=== PATIENT | male | born 1970 | race Caucasian/White ===

== ENCOUNTER → 2022-05-01 | Outpatient (CLI) | payer OTHER ==
--- NOTE | 2022-05-02 08:30 | US ---
EXAMINATION TYPE: US thyroid st tissue head/neck DATE OF EXAM: 05/01/2022 COMPARISON: NONE CLINICAL HISTORY: F45.8 OTHER SOMATOFORM DISORDERS. Lump thyroid GLAND SIZE: Right Lobe: 4.5 x 1.4 x 2.0 cm Overall Parenchyma: homogenous Left Lobe: 4.1 x 1.4 x 1.5 cm Overall Parenchyma: homogeneous Isthmus Thickness: cm NODULES RIGHT: # of nodules measured on right: 0 LEFT: # of nodules measured on left: 1area posterior to thyroid vs. adjacent to thyroid gland. 1. 1.1 X 1.0 x 1.0 cm, lower , , hypoechoic nodule, which is wider than tall, with smooth margins, without echogenic foci. Prior size: No previous. ISTHMUS: # of nodules measured in the isthmus: 0 Bilateral neck scanned, no evidence of lymphadenopathy. IMPRESSION: Nonspecific left-sided thyroid nodule versus parathyroid adenoma.
== END | disposition home or self-care (01) ==
LOC: RADUSWWP 16:52
PROVIDERS: ATTEND Family Medicine
DX: F45.8 Other somatoform disorders (principal)
CPT/HCPCS: 76536

== ENCOUNTER → 2023-05-14 | Outpatient (CLI) | payer OTHER ==
--- NOTE | 2023-05-19 22:16 | MR ---
EXAMINATION TYPE: MR knee LT wo con DATE OF EXAM: 05/14/2023 COMPARISON: Radiographs 04/17/2023 HISTORY: 53-year-old male Left knee pain behind and medial with swelling TECHNIQUE: Multiplanar, multisequence imaging of the left knee is performed without IV contrast. FINDINGS: There is an ACL rupture. PCL is intact. MCL is intact. There is prominent lateral capsular swelling but the LCL complex appears to remain intact. Additional anterior soft tissue swelling. Nondepressed impaction fractures involving the posterior lips of both medial (1.3 x 2.3 cm) and later al tibial plateaus (measuring 0.8 x 1.7 cm). Extensive associated bone marrow edema within the tibial plateaus. Corresponding impaction injury with 3 mm of depression along the anterior to middle third lateral fem oral condyle. Again, associated bone marrow edema. There is an irregular tear involving the posterior horn and body of the medial meniscus. Some degenerative signal within the body of the lateral meniscus. Signal does not clearly contact eit her articular surface at this time. Minimal superficial cartilage fissuring along the medial and lateral patellar facets. Tricompartment articular cartilage volumes are otherwise maintained. There is a moderate to large joint effusion and tiny Hutchison's cyst. Moderate fluid tracks along the popliteus tendon sheath. Extensor mechanism is intact. Normal popliteal artery anatomy and muscle bulk. No suspicious bone marrow replacement. IMPRESSION: 1. ACL rupture with corresponding coup and countercoup kissing contusions/impaction injuries. The con tusion involving the lateral femoral condyle corresponds to a deepened notch with depression of the a rticular surface by 3 mm. Extensive reactive osseous edema on both sides of the joint. 2. Irregular tear involving the posterior horn and body of the medial meniscus. 3. Degenerative signal involving the body of the lateral meniscus but without clear tear at this time . 4. Minimal superficial cartilage fissuring along the medial and lateral patellar facets of the patell ofemoral compartment. 5. Moderate to large joint effusion and tiny Hutchison's cyst. Moderate fluid also noted tracking along t he popliteus tendon sheath.
== END | disposition home or self-care (01) ==
LOC: RADMRIMAIN 21:30
PROVIDERS: ATTEND Orthopaedic Surgery
DX: M17.12 Unilateral primary osteoarthritis, left knee (principal); S83.242A Other tear of medial meniscus, current injury, left knee, initial encounter; S80.02XA Contusion of left knee, initial encounter; R60.0 Localized edema; M71.22 Synovial cyst of popliteal space [Baker], left knee; M25.462 Effusion, left knee; X58.XXXA Exposure to other specified factors, initial encounter

== ENCOUNTER → 2023-06-11 | Outpatient (CLI) | payer OTHER ==
[2023-06-11 15:49] LABS: Calcium 9.9 mg/dL (8.7-10.3); Carbon Dioxide 26.5 mmol/L (21.6-31.8); Chloride 103 mmol/L (96-109); Glucose 101 mg/dL (70-110); Potassium 4.2 mmol/L (3.5-5.5); Sodium 141 mmol/L (135-145)
[2023-06-11 16:03] LABS: Basophils # (A) 0.05 X 10*3/uL (0.00-0.10); Basophils % (A) 0.7 %; Eosinophils # (A) 0.28 X 10*3/uL (0.04-0.35); Eosinophils % (A) 4.1 %; HCT 45.7 % (39.6-50.0); HGB 15.3 d/dL (13.0-17.0); Lymphocytes # (A) 1.91 X 10*3/uL (0.90-5.00); Lymphocytes % (A) 28.1 %; MCHC 33.5 d/dL (32.0-37.0); MCV 86.6 FL (80.0-97.0); Mean Platelet Volume 11.4 FL (9.5-12.2); Monocytes # (A) 0.64 X 10*3/uL (0.20-1.00); Monocytes % (A) 9.4 %; NRBC Per 100 WBC 0 X 10*3/uL (0.00-0.01); Neutrophils # (A) 3.88 X 10*3/uL (1.80-7.70); Neutrophils % (A) 57.1 %; Platelet Count 242 X 10*3/uL (140-440); RBC 5.28 X 10*6/uL (4.40-5.60); RDW 13.5 % (11.5-14.5)
== END | disposition home or self-care (01) ==
LOC: LABWHC1 08:28
PROVIDERS: ATTEND Orthopaedic Surgery
DX: Z01.818 Encounter for other preprocedural examination (principal); M23.92 Unspecified internal derangement of left knee
CPT/HCPCS: 36415; 80048; 85025; 93005

== ENCOUNTER 2023-06-21 09:04 | Day surgery (SDC) | payer OTHER ==
--- NOTE | 2023-06-20 08:48 | P.HPOR ---
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 [place]. He is having persistent medial pain along with catching and locking ever since. He tried medications along with an injection without much relief. He notes daily pain that limits him. He does have a history of arthroscopy in 2016. Review of Systems As per HPI Past Medical History Past Medical History: GERD/Reflux, Hyperlipidemia, Musculoskeletal Disorder, Sleep Apnea/CPAP/BIPAP Additional Past Medical History / Comment(s): seasonal allergies, uses CPAP History of Any Multi-Drug Resistant Organisms: None Reported Past Surgical History: Orthopedic Surgery Additional Past Surgical History / Comment(s): COLONOSCOPY, arthroscopic left knee Past Anesthesia/Blood Transfusion Reactions: No Reported Reaction Smoking Status: Former smoker - Past Family History Father Family Medical History: Cancer Medications and Allergies Home Medications Medication Instructions Recorded Confirmed Type Atorvastatin [Lipitor] 20 mg PO HS 06/19/23 06/19/23 History Fluticasone Nasal [place] [Flonase 2 spray EA NOSTRIL DAILY PRN 06/19/23 06/19/23 History Nasal [place]] Lansoprazole [Prevacid 24Hr] 15 mg PO DAILY 06/19/23 06/19/23 History Multivitamins, Thera [Multivitamin 1 tab PO DAILY 06/19/23 06/19/23 History (formulary)] Allergies Allergy/AdvReac Type Severity Reaction Status Date / Time No Known Allergies Allergy Verified 06/19/23 14:42 Physical Examination - Knee left Appearance: effusion Effusion grade: grade 2 Tenderness with palpation: medial Pain: throughout ROM ROM: extension: -10 degrees ROM: flexion: 110 degrees Strength: extension: 5/5 Strength: flexion: 5/5 ACL tests: Talha's: grade 1 Meniscal tests: medial meniscal tests: positive, medial joint line pain: positive Results The patient is a well-developed well-nourished male proximal and 6 foot tall, 240 pounds of mesomorphic habitus. HEENT exam is nonfocal, neck is supple. He has painless passive motion of left hip. Straight leg raise is negative. He's tender about the medial and lateral joint line of the left knee. Collaterals are stable, Talha and 1+, pivot shift is positive. Sarahi's elicits medial pain. His distal neurovascular status appears intact in the left lower extremity. - Diagnostic results Knee MRI: image reviewed (Left knee MRI shows evidence of an ACL rupture along with medial meniscal tear. There is edema about the medial and lateral tibial plateau and lateral femoral condyle.) Assessment and Plan Assessment: Left knee internal derangement/medial meniscal tear/ACL rupture Plan: I talked to the patient regarding his condition along with treatment options. At this point he is quite symptomatic having both pain and mechanical symptoms. After thorough discussion and asked proceed with surgery. We'll plan to proceed with arthroscopic evaluation with probable partial medial meniscectomy and possible ACL debridement. I did discuss pros and cons of ACL reconstruction, at this point we will treat his ACL deficiency conservatively.
[~2023-06-21 09:04] MED LIST: DEXAMETHASONE SOD PHOSPHATE 4 MG/ML 1 ML VIAL IV ONE; LACTATED RINGERS 1,000 ML IV SCH; MIDAZOLAM 2 MG/2 ML VIAL IV PRN; ONDANSETRON 4 MG/2 ML VIAL IVP ONE; SCOPOLAMINE 1 MG/72 HR PATCH TRANSDERM ONE
[2023-06-21] MEDS ORDERED: MIDAZOLAM 2 MG/2 ML VIAL IVP ONE (09:59)
[2023-06-21] MEDS ORDERED: LIDOCAINE 2% INJ 20 MG/ML (2 ML VIAL) ONE (11:18)
[2023-06-21] MEDS ORDERED: PROPOFOL 10 MG/ML 20 ML VIAL IV ONE (11:18)
[2023-06-21] MEDS ORDERED: KETOROLAC 15 MG/ML 1 ML VIAL ONE (11:18)
[2023-06-21] MEDS ORDERED: fentaNYL (PF) 50 MCG/ML 2 ML AMP ONE (11:18)
--- NOTE | 2023-06-21 12:18 | P.OP ---
Date of Procedure: 06/21/23 Preoperative Diagnosis: Left knee internal derangement/ACL rupture Postoperative Diagnosis: Left knee posterior medial meniscal tear/anterior lateral meniscal tear/ACL rupture femoral attachment Procedure(s) Performed: Left knee arthroscopic partial medial meniscectomy/partial lateral meniscectomy/ACL debridement Anesthesia: RAJI Surgeon: Pradeep Rausch Estimated Blood Loss (ml): 10 Pathology: none sent Condition: stable Disposition: PACU Indications for Procedure: The patient is a 53-year-old male who presents with left knee pain and mechanical symptoms after a recent twisting injury despite attempted conservative measures. A discussion of the risks and benefits of operative intervention versus continued conservative measures was made with the patient. He opted to proceed with surgery. Operative risks to include infection, neurovascular injury, development of blood clots, possible persistence of instability, possible need for subsequent procedures was discussed. Operative options were discussed including arthroscopy with ACL debridement versus reconstruction. At this point I planned on conservative measures regarding his ACL rupture. Informed consent was obtained. Operative Findings: As below Description of Procedure: The patient was brought to the operating room, and after induction of general anesthesia examined the left knee. Collaterals were stable, Talha 1+ with a soft endpoint, and posterior drawer was negative. The left lower extremity was prepped and draped in a normal fashion. A superior lateral portal was made through a 3 mm skin incision superior and lateral to the patella. This was used for outflow. A lateral portal was made through a 5 mm vertical skin incision lateral to the patella tendon above the joint line. Diagnostic arthroscopy was performed. On inspection of the medial compartment, oblique tear involving the posterior most aspect of the medial meniscus in the white.-white junction was noted. This was not amenable to repair. This was debrided back to stable base with straight baskets and a motorized shaver. Grade 2 chondral changes were noted diffusely in the medial compartment. On inspection of the notch, the anterior cruciate ligament appeared to be completely ruptured off its femoral attachment. This was impinging on the lateral compartment. This was debrided back to stable tissue with a motorized shaver. On inspection of the lateral compartment, an anterior lateral meniscal tear was noted along the lateral tibial spine in the white-white junction. This was debrided back to stable base with a motorized shaver.. On inspection of the patellofemoral articulation, there is chondral fibrillation however no loose chondral fragments. The gutters were clear debris. The knee was then thoroughly irrigated. The portals were closed with Steri-Strips. A sterile dressing was applied in addition to a compression stocking. The patient was awoken from general anesthesia and transferred to recovery room in good condition. Blood loss was estimated at 10 mL. No complications were incurred.
[2023-06-21] MEDS: HYDROmorphone 0.5 MG/0.5 ML SYRINGE IVP PRN ×3 (12:22→12:38)
[2023-06-21 12:26] VITALS: TEMP 98
[2023-06-21 13:16] VITALS: RESP 20
[2023-06-21] MEDS ORDERED: HYDROcodone/APAP 7.5-325MG 1 EACH TAB ONE (13:28)
[2023-06-21] MEDS ORDERED: HYDROcodone/APAP 7.5-325MG 1 EACH TAB PO ONE (13:29)
[2023-06-21 13:31] VITALS: BP 124/73; PULSE 72
== END 2023-06-21 14:04 | disposition home or self-care (01) ==
LOC: OR 09:04
PROVIDERS: ATTEND Orthopaedic Surgery
DX: S83.242A Other tear of medial meniscus, current injury, left knee, initial encounter (principal); S83.282A Other tear of lateral meniscus, current injury, left knee, initial encounter; S86.912A Strain of unspecified muscle(s) and tendon(s) at lower leg level, left leg, initial encounter; X50.1XXA Overexertion from prolonged static or awkward postures, initial encounter; K21.9 Gastro-esophageal reflux disease without esophagitis; E78.5 Hyperlipidemia, unspecified; G47.30 Sleep apnea, unspecified; Z87.891 Personal history of nicotine dependence; Z79.899 Other long term (current) drug therapy
CPT/HCPCS: 29880; J2250; J1100; J0690; J2405; J3010; J1885; J2704; J1170; J2001

== ENCOUNTER 2024-08-07 12:11 | Day surgery (SDC) | payer BC, OTHER ==
[2024-08-05 11:33] VITALS: BMI 33.9
[~2024-08-07 12:11] MED LIST changes: -DEXAMETHASONE SOD PHOSPHATE 4 MG/ML 1 ML VIAL IV ONE; -LACTATED RINGERS 1,000 ML IV SCH; +LIDOCAINE 1% (10MG/ML) FOR IV START INTRADERMA PRN; -MIDAZOLAM 2 MG/2 ML VIAL IV PRN; -ONDANSETRON 4 MG/2 ML VIAL IVP ONE; -SCOPOLAMINE 1 MG/72 HR PATCH TRANSDERM ONE
[2024-08-07 12:56] VITALS: TEMP 97.4
[2024-08-07] MEDS: IV FLUID CONTINUATION 1,000 ML IV ONE (13:04)
[2024-08-07] MEDS: LACTATED RINGERS 1,000 ML IV SCH (13:05)
[2024-08-07] MEDS ORDERED: PROPOFOL 10 MG/ML 20 ML VIAL IV ONE (14:16)
[2024-08-07 14:47] VITALS: RESP 16
--- NOTE | 2024-08-07 14:54 | P.PCN ---
Date of Procedure: 08/07/24 Procedure(s) Performed: BRIEF HISTORY: Patient is a 54-year-old pleasant white male scheduled for an elective colonoscopy as a part of screening for colon cancer. PROCEDURE PERFORMED: Colonoscopy with biopsy. PREOPERATIVE DIAGNOSIS: Screening for colon cancer. IV sedation per Anesthesia. PROCEDURE: After informed consent was obtained, the patient, was brought into the endoscopy unit. IV sedation was administered by Anesthesia under continuous monitoring. Digital rectal examination was normal. Initially the Olympus CF-160 flexible video colonoscope was then inserted in the rectum, gradually advanced into the cecum without any difficulty. Careful examination was performed as the scope was gradually being withdrawn. Ileocecal valve and the appendiceal orifice were visualized and appeared normal. Prep was excellent. Mucosa of the cecum, ascending colon, transverse colon, appeared normal. In the descending colon there was a 3 mm and 5 mm polyp that was removed by cold biopsy. Descending colon, sigmoid colon, and rectum appeared normal. Retroflexion was performed in the rectum and no lesions were seen. The patient tolerated the procedure well. IMPRESSION: 4 mm and 5 mm descending colon polyp status post cold biopsy Rest of the colon appeared normal. RECOMMENDATIONS: Findings of this examination were discussed with the patient as well as his family. He was advised to follow biopsy results. If the biopsy reveals adenoma, recommended repeat colonoscopy in 5 years. .
[2024-08-07 14:59] VITALS: BP 126/80; PULSE 77
== END 2024-08-07 15:14 | disposition home or self-care (01) ==
LOC: ORWHC2ENDO 12:11
PROVIDERS: ATTEND Internal Medicine Gastroenterology
DX: Z12.11 Encounter for screening for malignant neoplasm of colon (principal); D12.4 Benign neoplasm of descending colon; Z79.899 Other long term (current) drug therapy
CPT/HCPCS: 88305; 45380; J2704

== ENCOUNTER → 2024-12-11 | Outpatient (CLI) | payer BC ==
--- NOTE | 2024-12-11 12:47 | FL ---
EXAMINATION TYPE: FL barium swallow DATE OF EXAM: 12/11/2024 11:25 AM COMPARISON: None CLINICAL INDICATION:Male, 54 years old with history of R13.10 DYSPHAGIA; TECHNIQUE: The procedure was explained and patient history elicited. All patient questions were ans wered prior to start of procedure. Multiple spot fluoroscopic images of the esophagus were obtained a fter the oral ingestion of effervescent crystals and liquid barium as the contrast agent. DAP: NOT REPORTED [id number] FINDINGS: The esophagus demonstrates normal primary and secondary peristalsis. Tertiary contractions are seen w ith delayed emptying of the esophageal contents. The esophageal mucosa is smooth without evidence of focal stricture, ulceration, or abnormal outpouching. No gastroesophageal reflux disease was identif ied IMPRESSION: Mild Esophageal dysmotility. Consider CT evaluation given patient's reported symptoms of food coming out from his mouth. [facility], , 12/11/2024 12:45 PM
== END | disposition home or self-care (01) ==
LOC: RADFLMAIN 10:42
PROVIDERS: ATTEND Otolaryngology
DX: K22.4 Dyskinesia of esophagus (principal); R09.89 Other specified symptoms and signs involving the circulatory and respiratory systems
CPT/HCPCS: 74220